=== PATIENT | female | born 1985 | race Caucasian/White ===

== ENCOUNTER 2024-12-25 06:20 | Day surgery (SDC) | payer OTHER, SELFPAY | END 2024-12-25 11:25 | disposition home or self-care (01) | LOC: GI 06:20 | PROVIDERS: ATTENDING PHYSICIAN Surgery | DX: Z12.11 Encounter for screening for malignant neoplasm of colon (principal); Z83.719 Family history of colon polyps, unspecified; Z80.0 Family history of malignant neoplasm of digestive organs | CPT/HCPCS: 45378 ==